=== PATIENT | male | born 1950 | race Hispanic/Latino ===

== ENCOUNTER 2020-05-28 00:07 | Inpatient (IN) | payer OTHER, SELFPAY ==
[2020-05-28 00:46] LABS: #Lymphocytes 0.5 thou/uL (1.20-3.40); #Monocytes 0.4 thou/uL (0.11-0.59); #Neutrophils 8.8 thou/uL (1.40-6.50); %Basophils 0.4 % (0.0-1.0); %Eosinophils 0.4 % (0.0-10.0); %Lymphocytes 5.4 % (21.0-51.0); %Monocytes 4.3 % (0.0-10.0); %Neutrophils 89.6 % (42.0-75.0); Hemoglobin 9.4 g/dL (14.0-18.0); Mean Corpuscular HGB CONC 32.7 g/dL (32.0-36.0); Mean Corpuscular Hemoglobin 32.3 pg (27.0-31.0); Mean Corpuscular Volume 98.8 fL (78.0-98.0); Mean Platelet Volume 7.8 fL (7.4-10.4); Platelet Count 196 thou/uL (130-400); RBC Distribution Width 12.3 % (11.5-14.5); Red Blood Cell (RBC) Count 2.91 mill/uL (4.70-6.10); White Blood Cell (WBC) Count 9.8 thou/uL (4.8-10.8)
[2020-05-28] MEDS ORDERED: Pantoprazole 80 MG in Sodium Chloride 0.9% 100 ML IVP SCH (01:00)
[2020-05-28] MEDS ORDERED: Octreotide Acetate 1,250 MCG in Sodium Chloride 0.9% 250 ML 250 ML IVPB SCH ×2 (01:00→01:15)
[2020-05-28] MEDS ORDERED: cefTRIAXone\\ROCEPHIN 2 GM VIAL ONE (01:07)
[2020-05-28] MEDS ORDERED: Octreotide Acetate 50 MCG/ML AMP ONE (01:07)
--- NOTE | 2020-05-28 01:19 | PDOC.EVN ---
Event Note - Event Note Event Note: [id number] HP
--- NOTE | 2020-05-28 01:48 | HP ---
CHIEF COMPLAINT: Vomiting blood. HISTORY OF PRESENT ILLNESS: Mr. Young is a 69-year-old male, who is being transferred from [place] for evaluation of upper GI bleeding. The patient had two episodes of bloody emesis today while at home, prompting him to go to the emergency room. The patient reports nausea, which has resolved. Denies pain. While at the emergency room in [place], the patient had a syncopal episode when ambulating to the bathroom with a brief loss of consciousness. In the emergency room, the patient received 3 L of fluids and 1 unit of packed RBCs. Hemoglobin was 10. Repeat hemoglobin is 9.4, after blood transfusion. The patient is persistently tachycardic. ED consulted with GI, who advised to admit the patient for possible endoscopy. The patient was started on IV proton pump inhibitor drip and IV octreotide. No fever. No chills. The patient is being admitted to the hospital for further management. PAST MEDICAL HISTORY: 1. Alcohol abuse. 2. Adenocarcinoma of the colon. PAST SURGICAL HISTORY: Colon surgery. SOCIAL HISTORY: The patient drinks every day, more than 5 drinks per day. He smokes cigarettes, one pack per week. FAMILY HISTORY: Reviewed and noncontributory. HOME MEDICATIONS: Please see home medication reconciliation form for updated medications. ALLERGIES: NO KNOWN ALLERGIES. REVIEW OF SYSTEMS: Review of 14 systems negative except what is mentioned in the history of present illness. PHYSICAL EXAMINATION: GENERAL: The patient is awake, alert, does not appear to be in acute distress. VITAL SIGNS: Blood pressure is 142/83, pulse is 125, respiratory rate is 20, temperature is 98. HEAD AND NECK: Normocephalic, atraumatic. Neck is supple. CHEST: Fair bilateral air entry. HEART: S1, S2, regular. ABDOMEN: Distended, nontender. Bowel sounds hypoactive. NEUROLOGIC: Awake, alert, and oriented x3. No focal deficits. PSYCH: Unable to assess. EXTREMITIES: No clubbing or cyanosis. LABORATORY DATA: Hemoglobin 10.3; after 1 unit of packed RBCs, went down to 9.4; platelet is 196, WBC count is 9.8. INR is 1.1. Electrolytes; BUN is 27, creatinine 0.6, AST is 70, ALT is 102. ASSESSMENT: 1. Acute gastrointestinal bleeding, upper. 2. Syncope, probably secondary to hypovolemia secondary to gastrointestinal bleeding. 3. Tachycardia. 4. Alcohol abuse. 5. History of colon cancer. 6. Cigarette smoker. PLAN: 1. Admit to IMCU. 2. Telemetry monitoring. 3. IV proton pump inhibitor drip. 4. IV octreotide. 5. Prophylactic IV antibiotics. 6. GI consulted for evaluation of further management. 7. Monitor hemoglobin and hematocrit. 8. Counseling while in the hospital for alcohol and smoking cessation. 9. DVT prophylaxis, appropriate. 10. Expected length of stay, 2 midnights or more. Job ID: [id number]
[2020-05-28 03:03] VITALS: BMI 24.3
[2020-05-28] MEDS: cefTRIAXone\\ROCEPHIN 1 GM in Sodium Chloride 0.9% 100 ML IVPB SCH (03:14)
[2020-05-28] MEDS: Sodium Chloride 0.9% 1,000 ML IV SCH ×3 (03:15→20:09)
[2020-05-28 03:25] LABS: #Lymphocytes 0.8 thou/uL (1.20-3.40); #Monocytes 0.5 thou/uL (0.11-0.59); #Neutrophils 9.1 thou/uL (1.40-6.50); %Basophils 0.1 % (0.0-1.0); %Eosinophils 0.3 % (0.0-10.0); %Lymphocytes 7.9 % (21.0-51.0); %Monocytes 5.1 % (0.0-10.0); %Neutrophils 86.6 % (42.0-75.0); Hemoglobin 10.8 g/dL (14.0-18.0); Mean Corpuscular HGB CONC 33.1 g/dL (32.0-36.0); Mean Corpuscular Hemoglobin 32.2 pg (27.0-31.0); Mean Corpuscular Volume 97.3 fL (78.0-98.0); Mean Platelet Volume 7.9 fL (7.4-10.4); Platelet Count 186 thou/uL (130-400); RBC Distribution Width 12.9 % (11.5-14.5); Red Blood Cell (RBC) Count 3.34 mill/uL (4.70-6.10); White Blood Cell (WBC) Count 10.5 thou/uL (4.8-10.8)
[2020-05-28 03:51] LABS: ALT (SGPT) 75 U/L (8-55); AST (SGOT) 47 U/L (5-34); Albumin 3.1 g/dL (3.4-4.8); Alkaline Phosphatase 81 U/L (40-110); Anion Gap 16 mmol/L (10-20); BUN (Urea Nitrogen) 26 mg/dL (8.4-25.7); Bilirubin, Total 0.3 mg/dL (0.2-1.2); Calc. Creatinine Clearance 118 mL/min (70-130); Calcium 7.1 mg/dL (7.8-10.44); Carbon Dioxide 17 mmol/L (23-31); Chloride 113 mmol/L (98-107); Estimated GFR-MDRD Greater than 90; Globulin 2.3 g/dL (2.4-3.5); Glucose 177 mg/dL (80-115); Protein, Total 5.4 g/dL (5.8-8.1); Sodium 142 mmol/L (136-145)
[2020-05-28] MEDS ORDERED: PHENYLEPHRINE-NS 100 MCG/ML 10 ML SYRINGE ONE (09:41)
[2020-05-28] MEDS ORDERED: Dexamethasone 20 MG/5 ML VIAL ONE (09:41)
[2020-05-28] MEDS ORDERED: PROPOFOL 200 MG/20 ML VIAL ONE (09:41)
[2020-05-28] MEDS ORDERED: Succinylcholine Chloride 20 MG/ML 10 ml SYRINGE FS ONE (09:41)
[2020-05-28] MEDS ORDERED: Ondansetron PF 4 MG/2 ML Vial ONE (09:41)
[2020-05-28] MEDS: Multivitamins, Adult 10 ML, Folic Acid 1 MG, Thiamine HCl 100 MG in Dextrose 5 %-0.45 %... IV SCH (10:40)
[2020-05-28 11:50] LABS: SARS-CoV-2 MS2 Positive; SARS-CoV-2 N Gene Negative; SARS-CoV-2 S Gene Negative; SARS-CoV-2 by NAA Not Detected (NotDetected); SARS-CoV-2 orf1ab Negative
--- NOTE | 2020-05-28 11:56 | CON ---
DATE OF CONSULTATION: 05/28/2020 HISTORY OF PRESENT ILLNESS: Mr. Young is a 69-year-old gentleman, who was admitted to the hospital for GI bleed. He underwent a CT of his abdomen in [place], which showed no obvious masses. He has had previous colon resection for colon carcinoma in 2016. It is unclear who he is being followed by. He speaks little to no [place]ian. 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 He presented with vomiting several times. He is in the ICU for observation. PAST MEDICAL HISTORY: Pertinent for no other major medical problems. No history of diabetes or hypertension. HABITS: Alcohol, 5 to 6 drinks a day. Smoker in the past, unclear when he quit smoking. SOCIAL HISTORY: Unemployed. FAMILY HISTORY: Unremarkable. HOME MEDICINES: Unknown. REVIEW OF SYSTEMS: Otherwise, unremarkable. PHYSICAL EXAMINATION: VITAL SIGNS: He is in no distress. Sats are 100% on room air, blood pressure 130/80, pulse rate 18. CHEST: No wheezing. No crackles. CARDIAC: Normal S1 and S2. No gallops. ABDOMEN: No masses. LABORATORY DATA: His platelet count is normal, white count 10,000, and H and H of 10 and 32. Lytes are normal. X-ray was normal. CT of abdomen was noted. IMPRESSION AND PLAN: 1. Upper GI bleed, gastritis versus varices. 2. Longstanding history of alcohol abuse. 3. Longstanding history of tobacco abuse. 4. Colon cancer, rectosigmoid, 2016, status post surgery. Banana bag initiated. He is on Protonix, octreotide. Await GI input. Consultation note, 70 minutes, 50% direct patient care. Job ID: [id number]
[2020-05-28 13:20] LABS: Hemoglobin 9.7 g/dL (14.0-18.0)
--- NOTE | 2020-05-28 13:50 | PDOC.HOSPP ---
- Subjective Encounter Date: 05/28/20 Subjective: Doing well. No complaints. Denies abdominal pain. Denies any additional vomiting. - Objective Vital Signs & Weight: Vital Signs (12 hours) Temp Pulse Ox 05/28/20 12:00 99.2 F 05/28/20 08:00 99.2 F 97 05/28/20 03:52 92 L 05/28/20 03:00 97.5 F L Weight Weight 151 lb 0.266 oz Most Recent Monitor Data Heart Rate from ECG 81 NIBP 147/91 NIBP BP-Mean 109 Respiration from ECG 15 SpO2 98 I&O: 05/27/20 05/28/20 05/29/20 06:59 06:59 06:59 Intake Total 325 Output Total 300 1650 Balance 25 -1650 Result Diagrams: 05/28/20 13:03 05/28/20 03:14 Hospitalist ROS - Medication Medications: Active Medications Generic Name Dose Route Start Last Admin Trade Name Freq PRN Reason Stop Dose Admin Sodium Chloride 1,000 mls @ 100 mls/hr 05/28/20 01:00 05/28/20 10:40 Normal Saline 0.9% IV Not Given .Q10H RICO Pantoprazole Sodium 80 mg/ 100 mls @ 10 mls/hr 05/28/20 01:00 05/28/20 08:51 Sodium Chloride IVP 100 mls INF RICO Administration Ceftriaxone Sodium 1 gm/ 100 mls @ 200 mls/hr 05/28/20 02:00 05/28/20 03:14 Sodium Chloride IVPB Not Given Q24HR RICO Multivitamins 10 ml/ Folic 1,011.2 mls @ 125 mls/hr 05/28/20 09:00 05/28/20 10:40 Acid 1 mg/ Thiamine HCl 100 mg IV 05/31/20 09:01 1,011.2 mls / Dextrose/Sodium Chloride Q24HR RICO Administration As Directed - Exam General Appearance: NAD, awake alert Heart: RRR, no murmur, no gallops, no rubs, normal peripheral pulses Respiratory: CTAB, no wheezes, no rales, no ronchi, normal chest expansion, no tachypnea, normal percussion Gastrointestinal: soft, non-tender, non-distended, normal bowel sounds, no palpable masses, no hepatomegaly, no splenomegaly, no bruit Extremities: no cyanosis, no clubbing, no edema Skin: normal turgor, no lesions, no rashes Neurological: cranial nerve grossly intact, normal sensation to touch, no weakness, no focal deficits, no new deficit Musculoskeletal: normal tone, normal strength, no muscle wasting Psychiatric: normal affect, normal behavior, A&O x 3 Hosp A/P (1) GI bleed Code(s): K92.2 - GASTROINTESTINAL HEMORRHAGE, UNSPECIFIED Status: Acute (2) Hematochezia Code(s): K92.1 - MELENA Status: Chronic (3) Alcohol abuse Code(s): F10.10 - ALCOHOL ABUSE, UNCOMPLICATED Status: Chronic (4) Tobacco abuse Code(s): Z72.0 - TOBACCO USE Status: Chronic (5) Syncope Code(s): R55 - SYNCOPE AND COLLAPSE Status: Acute (6) History of colon cancer Code(s): Z85.038 - PERSONAL HISTORY OF MALIGNANT NEOPLASM OF LARGE INTESTINE Status: Acute - Plan GI bleed: Patient had episodes of hematemesis but apparently that is now resolved. His hemoglobin remains relatively stable. He remains on PPI, octreotide. GI consult pending. He appears hemodynamically stable. Alcohol abuse: Patient is a daily drinker. He is getting a banana bag. He has no evidence of withdrawal at this time. Anemia: Mild and stable. Likely more related to chronic alcohol use than an acute blood loss.
--- NOTE | 2020-05-28 16:14 | CON ---
DATE OF CONSULTATION: 05/28/2020 CHIEF COMPLAINT: Vomited blood. HISTORY OF PRESENT ILLNESS: Mr. Young is a 69-year-old man, who vomited red blood at home yesterday and then he came to the emergency room and vomited red blood again. He has had no further overt bleeding since then. His last bowel movement was yesterday morning, which he reports was black. He has had no abdominal pain with this. No persistent nausea and he has had no vomiting today. His weight has been stable. He was diagnosed with colon cancer by colonoscopy with a [facility] back in 2015. He underwent rectosigmoid colon resection of a 10 cm x 6.5 cm mass. This was a T2 N0 M0 lesion. I do not know if he has had any followup endoscopy since then. He drinks 6 packs of beer per day. He smokes half a pack a day. PAST MEDICAL HISTORY: Alcohol abuse and colon cancer. PAST SURGICAL HISTORY: Colon resection. FAMILY HISTORY: His grandmother had cancer, he does not know what type. SOCIAL HISTORY: Smokes half a pack a day. Drinks 6 packs a day. No drugs. ALLERGIES: NO KNOWN DRUG ALLERGIES. MEDICATIONS PRIOR TO ADMISSION: Negative. CURRENT INPATIENT MEDICATIONS: Include: 1. Ceftriaxone. 2. Octreotide. 3. Pantoprazole. REVIEW OF SYSTEMS: Negative x10 systems reviewed except as stated in the history of present illness. PHYSICAL EXAMINATION: VITAL SIGNS: Temperature is 99.2, pulse 72, blood pressure 120/53. GENERAL: He is in no acute distress. Alert and oriented x3. HEENT: Eyes have no scleral icterus. Oropharynx is clear without lesions. No cervical or supraclavicular lymphadenopathy. LUNGS: Clear to auscultation bilaterally. HEART: Regular rate and rhythm without murmur. ABDOMEN: Soft, nontender, and nondistended. Bowel sounds are present. EXTREMITIES: No lower extremity edema. NEUROLOGIC: No asterixis on neurological exam. LABORATORY DATA: White blood cell count 10.5, hemoglobin 10.8, and platelets 186. He did receive 1 unit transfusion apparently last night and his hemoglobin improved from 9.4 to 10.8. This morning at 9 o'clock, his hemoglobin was 10, platelet count is 186. INR 1.1. Creatinine 0.59, bilirubin 0.3, AST 47, ALT 75, alkaline phosphatase 81, albumin 3.1. Lipase 20. CEA back in 2016 was 8.1. IMAGING STUDIES: He had a CT scan of the abdomen and pelvis yesterday on 05/27/2020, which showed fatty infiltration of the liver and fluid-filled stomach. IMPRESSION: 1. Upper gastrointestinal bleed, presenting with hematemesis. He has a significant history of alcohol abuse and elevated transaminases. He does not have obvious cirrhosis based on imaging. His INR is normal, his platelets are normal, and his bilirubin is normal. His albumin is a little low, but that is likely secondary to nutritional etiology, but still he needs to be covered as if he has cirrhosis until endoscopy can be performed. 2. History of colon cancer, status post resection in 2016. It is unclear to me if he has had followup since then regarding endoscopy or if he received any kind of chemotherapy. 3. Anemia of acute blood loss, status post 1 unit transfusion with hemoglobin now of 10 up from 9.4 after transfusion. RECOMMENDATIONS: 1. Octreotide, ceftriaxone, and pantoprazole. 2. EGD today. 3. We will need to clarify if he has had followup colonoscopy since his colon resection for colon cancer. If not, then he should get this done as an outpatient. 4. Check CEA level. Job ID: [id number]
--- NOTE | 2020-05-28 18:03 | OP ---
DATE OF PROCEDURE: 05/28/2020 PROCEDURE PERFORMED: Esophagogastroduodenoscopy with control of hemorrhage. PREOPERATIVE DIAGNOSIS: Upper gastrointestinal bleed and anemia of acute blood loss. DESCRIPTION OF PROCEDURE: Informed consent was obtained from the patient. He was sedated with general anesthesia. The bite block was placed and the endoscope was advanced easily to the second portion of the duodenum and retroflexion was performed in the stomach. The esophagus had an ulcer in the mid esophagus with its deepest portion at 31 cm with a large adherent clot. The rest of the esophagus was normal. No obvious varices. The stomach was normal including retroflexed views. The pylorus and first and second portions of the duodenum were normal. The area of the adherent clot was injected with epinephrine 1 mL per quadrant in 4 quadrants around the ulcer with epinephrine 1:10,000. The clot was then dislodged with the 10-[place] gold probe. There was active bleeding from the vessel underneath and this was cauterized with the 10-[place] gold probe with 20 ling max with good hemostasis confirmed. There was a significant cautery effect in the base of the ulcer. I closed the site with 3 hemoclips. Good hemostasis was confirmed. IMPRESSION: Esophageal ulcer with a large adherent clot at 31 cm, which bled actively when the clot was dislodged. This was injected with epinephrine 1:10,000 for a total of 4 mL and cauterized with a 10-[place]ian gold probe with good hemostasis. The cautery ulcer was closed with 3 hemoclips. RECOMMENDATIONS: 1. Continue proton pump inhibitor IV. 2. Clear liquid diet starting after a couple of hours and then advance to full liquids. He should remain on full liquids for a few days or at least pureed. 3. Discontinue octreotide. 4. Okay to discontinue ceftriaxone from a GI standpoint. However, I will not discontinue this now in case the primary service would like for him to be on this from a standpoint of his elevated white blood cell count on admission. Job ID: [id number]
[2020-05-28] MEDS: Pantoprazole 40 MG VIAL IVP SCH (20:09)
[2020-05-29] MEDS: cefTRIAXone\\ROCEPHIN 1 GM in Sodium Chloride 0.9% 100 ML IVPB SCH (01:00)
[2020-05-29 03:45] LABS: Hemoglobin 9.4 g/dL (14.0-18.0); Mean Corpuscular HGB CONC 33.5 g/dL (32.0-36.0); Mean Corpuscular Hemoglobin 32.2 pg (27.0-31.0); Mean Corpuscular Volume 95.9 fL (78.0-98.0); RBC Distribution Width 13.1 % (11.5-14.5); Red Blood Cell (RBC) Count 2.92 mill/uL (4.70-6.10); White Blood Cell (WBC) Count 10.4 thou/uL (4.8-10.8)
[2020-05-29 03:46] LABS: #Lymphocytes 0.9 thou/uL (1.20-3.40); #Monocytes 0.4 thou/uL (0.11-0.59); #Neutrophils 9.1 thou/uL (1.40-6.50); %Basophils 0.1 % (0.0-1.0); %Eosinophils 0.1 % (0.0-10.0); %Lymphocytes 8.9 % (21.0-51.0); %Monocytes 4.1 % (0.0-10.0); %Neutrophils 86.9 % (42.0-75.0); Mean Platelet Volume 8.3 fL (7.4-10.4); Platelet Count 177 thou/uL (130-400)
[2020-05-29 04:07] LABS: ALT (SGPT) 51 U/L (8-55); AST (SGOT) 25 U/L (5-34); Albumin 3.1 g/dL (3.4-4.8); Alkaline Phosphatase 74 U/L (40-110); Anion Gap 12 mmol/L (10-20); BUN (Urea Nitrogen) 13 mg/dL (8.4-25.7); Bilirubin, Total 0.3 mg/dL (0.2-1.2); Calc. Creatinine Clearance 112 mL/min (70-130); Calcium 7.8 mg/dL (7.8-10.44); Carbon Dioxide 26 mmol/L (23-31); Chloride 108 mmol/L (98-107); Estimated GFR-MDRD Greater than 90; Globulin 2.3 g/dL (2.4-3.5); Glucose 147 mg/dL (80-115); Potassium 3.5 mmol/L (3.5-5.1); Protein, Total 5.4 g/dL (5.8-8.1); Sodium 142 mmol/L (136-145)
[2020-05-29] MEDS: Sodium Chloride 0.9% 1,000 ML IV SCH ×2 (07:40→17:15)
[2020-05-29] MEDS: Pantoprazole 40 MG VIAL IVP SCH ×2 (09:40→19:41)
--- NOTE | 2020-05-29 10:00 | PRG ---
DATE OF SERVICE: 05/29/2020 SUBJECTIVE: Transferred out of the ICU. Yesterday, he underwent upper GI endoscopy, was found to have also on the esophagus larger clot. Epinephrine was instilled. It was cauterized. He is doing well postsurgery. OBJECTIVE: VITAL SIGNS: He is now 96% on room air, blood pressure 138/66, respirations 16, temperature 97. CHEST: No wheezing. No crackles. CARDIAC: Normal S1, S2. No gallops. ABDOMEN: Soft. LABORATORY DATA: H and H, 9 and 28, platelet count normal. ASSESSMENT: Upper gastrointestinal bleed, status post endoscopy. PLAN: Pulmonary/Critical Care will follow at a distance. Nothing additional to offer. Job ID: [id number]
[2020-05-29] MEDS: Multivitamins, Adult 10 ML, Folic Acid 1 MG, Thiamine HCl 100 MG in Dextrose 5 %-0.45 %... IV SCH (10:34)
--- NOTE | 2020-05-29 17:12 | PRG ---
DATE OF SERVICE: 05/29/2020 SUBJECTIVE: Mr. Hector Daugherty is feeling pretty well today. He denies any chest pain or abdominal pain. He has not had any recurrence of nausea or vomiting. There has been no report of overt bleeding. His hemoglobin is fairly stable at 9.4 this morning. He has been tolerating his liquid diet. OBJECTIVE: VITAL SIGNS: Temperature 97.4, pulse 66, blood pressure 138/66, 96% oxygen saturation on room air. GENERAL: No acute distress. HEART: Regular rate and rhythm. LUNGS: Clear to auscultation bilaterally. ABDOMEN: Bowel sounds present. Soft and nontender to palpation. EXTREMITIES: No peripheral edema. LABORATORY STUDIES: Hemoglobin 9.4, WBC 10.4, platelets 177. Sodium 142; potassium 3.5; BUN 13, down from 26; creatinine is 0.62; glucose 147. LFTs have normalized with total bilirubin 0.3, alkaline phosphatase 74, AST 25, ALT 51. CEA is 5.41, which is slightly elevated. COVID PCR is negative. ASSESSMENT AND PLAN: 1. Esophageal ulcer with hemorrhage, status post endoscopic therapy with epinephrine injection, bipolar cautery, and hemoclip placement by Dr. Mccurdy yesterday. 2. Acute blood loss anemia, appears to have stabilized. I discussed with the patient that this esophageal ulcer ought to heal without any rebleeding as long as treated appropriately. Continue the PPI twice daily IV while here, transition to p.o. dosing on discharge and continue for at least the next 2 months. Because of the potential for dislodging these hemoclips that were placed by Dr. Mccurdy, I would agree with his recommendation to stay on a liquid or pureed diet for the next few days. We will keep him on a full liquid diet today, but could advance to a pureed diet tomorrow afternoon if he is still doing well. 3. Elevated CEA. 4. History of colon cancer. This was resected a couple of years ago. The patient is going to need repeat colonoscopy on an outpatient basis. 5. GI will continue to follow along. Please call back anytime with questions or concerns. Job ID: [id number]
--- NOTE | 2020-05-29 23:02 | PDOC.HOSPP ---
- Subjective Encounter Date: 05/29/20 Subjective: Doing very well. No pain. NO vomiting. NO complaints. Patient clarified that he only drinks a couple of beers per day. - Objective Vital Signs & Weight: Vital Signs (12 hours) Temp Pulse Resp BP Pulse Ox 05/29/20 19:39 97.4 F L 67 16 111/55 L 98 Weight Admit Weight 151 lb 0.266 oz Weight 151 lb Most Recent Monitor Data Heart Rate from ECG 81 NIBP 147/91 NIBP BP-Mean 109 Respiration from ECG 15 SpO2 98 I&O: 05/28/20 05/29/20 05/30/20 06:59 06:59 06:59 Intake Total 325 2580 Output Total 300 5480 2750 Balance 12 -4318 -1728 Result Diagrams: 05/29/20 03:20 05/29/20 03:20 Hospitalist ROS - Medication Medications: Active Medications Generic Name Dose Route Start Last Admin Trade Name Freq PRN Reason Stop Dose Admin Sodium Chloride 1,000 mls @ 100 mls/hr 05/28/20 01:00 05/29/20 17:15 Normal Saline 0.9% IV 1,000 mls .Q10H RICO Administration Multivitamins 10 ml/ Folic 1,011.2 mls @ 125 mls/hr 05/28/20 09:00 05/29/20 10:34 Acid 1 mg/ Thiamine HCl 100 mg IV 05/31/20 09:01 1,011.2 mls / Dextrose/Sodium Chloride Q24HR RICO Administration As Directed Pantoprazole Sodium 40 mg 05/28/20 21:00 05/29/20 19:41 Protonix IVP 40 mg Q12HR RICO Administration - Exam General Appearance: NAD, awake alert Heart: RRR, no murmur, no gallops, no rubs, normal peripheral pulses Respiratory: CTAB, no wheezes, no rales, no ronchi, normal chest expansion, no tachypnea, normal percussion Gastrointestinal: soft, non-tender, non-distended, normal bowel sounds, no palpable masses, no hepatomegaly, no splenomegaly, no bruit Extremities: no cyanosis, no clubbing, no edema Skin: normal turgor, no lesions, no rashes Neurological: cranial nerve grossly intact, normal sensation to touch, no weakness, no focal deficits, no new deficit Musculoskeletal: normal tone, normal strength, no muscle wasting Psychiatric: normal affect, normal behavior, A&O x 3 Hosp A/P (1) GI bleed Code(s): K92.2 - GASTROINTESTINAL HEMORRHAGE, UNSPECIFIED Status: Acute (2) Hematochezia Code(s): K92.1 - MELENA Status: Chronic (3) Alcohol abuse Code(s): F10.10 - ALCOHOL ABUSE, UNCOMPLICATED Status: Ruled-out (4) Tobacco abuse Code(s): Z72.0 - TOBACCO USE Status: Chronic (5) Syncope Code(s): R55 - SYNCOPE AND COLLAPSE Status: Acute (6) History of colon cancer Code(s): Z85.038 - PERSONAL HISTORY OF MALIGNANT NEOPLASM OF LARGE INTESTINE Status: Acute (7) Esophageal ulcer with bleeding Status: Acute - Plan GI bleed: Large esophageal ulcer. He works late, eats, drinks a couple of beers and goes to bed. Likely precipitates a lot of reflux. He was educated to avoid that. Continue with full liquids today. Pureed tomorrow. Alcohol abuse: Patient clarified that he doesn't actually drink more that two beers per day. Will continue the banana bag, but don't suspect WD is a concern. Anemia: Mild and stable. Likely more related to chronic alcohol use than an acute blood loss.
[2020-05-30] MEDS: Sodium Chloride 0.9% 1,000 ML IV SCH ×3 (02:23→20:24)
[2020-05-30 09:21] LABS: #Basophils 0.1 thou/uL (0.0-0.2); #Eosinphils 0.1 thou/uL (0.0-0.7); #Lymphocytes 1.8 thou/uL (1.20-3.40); #Monocytes 0.7 thou/uL (0.11-0.59); #Neutrophils 4.8 thou/uL (1.40-6.50); %Basophils 0.9 % (0.0-1.0); %Eosinophils 1.7 % (0.0-10.0); %Lymphocytes 23.9 % (21.0-51.0); %Monocytes 9.8 % (0.0-10.0); %Neutrophils 63.7 % (42.0-75.0); Hemoglobin 9.8 g/dL (14.0-18.0); Mean Corpuscular HGB CONC 33.1 g/dL (32.0-36.0); Mean Corpuscular Hemoglobin 32.1 pg (27.0-31.0); Mean Corpuscular Volume 96.9 fL (78.0-98.0); Mean Platelet Volume 8.1 fL (7.4-10.4); Platelet Count 181 thou/uL (130-400); Red Blood Cell (RBC) Count 3.07 mill/uL (4.70-6.10); White Blood Cell (WBC) Count 7.5 thou/uL (4.8-10.8)
[2020-05-30] MEDS: Pantoprazole 40 MG VIAL IVP SCH ×2 (10:16→20:23)
[2020-05-30] MEDS: Multivitamins, Adult 10 ML, Folic Acid 1 MG, Thiamine HCl 100 MG in Dextrose 5 %-0.45 %... IV SCH (10:18)
--- NOTE | 2020-05-30 11:48 | PDOC.HOSPP ---
- Subjective Encounter Date: 05/30/20 Subjective: Patient feels very well today. He has no complaints. Denies any abdominal pain or nausea. He has been tolerating full liquid diet and advance to pured this morning by GI. - Objective Vital Signs & Weight: Vital Signs (12 hours) Temp Pulse Resp BP Pulse Ox 05/30/20 07:31 97.5 F L 68 18 139/65 99 Weight Admit Weight 151 lb 0.266 oz Weight 151 lb Most Recent Monitor Data Heart Rate from ECG 81 NIBP 147/91 NIBP BP-Mean 109 Respiration from ECG 15 SpO2 98 Selected Entries 05/29/20 19:39 Temperature 97.4 F L Blood Pressure 111/55 L [Semi-Fowlers] I&O: 05/29/20 05/30/20 05/31/20 06:59 06:59 06:59 Intake Total 2580 1400 Output Total 5480 4150 Balance -2900 -8210 Result Diagrams: 05/30/20 09:10 05/29/20 03:20 Additional Labs: Laboratory Tests 05/29/20 03:20 Hgb 9.4 L Hospitalist ROS - Medication Medications: Active Medications Generic Name Dose Route Start Last Admin Trade Name Freq PRN Reason Stop Dose Admin Sodium Chloride 1,000 mls @ 100 mls/hr 05/28/20 01:00 05/30/20 02:23 Normal Saline 0.9% IV 1,000 mls .Q10H RICO Administration Multivitamins 10 ml/ Folic 1,011.2 mls @ 125 mls/hr 05/28/20 09:00 05/30/20 10:18 Acid 1 mg/ Thiamine HCl 100 mg IV 05/31/20 09:01 1,011.2 mls / Dextrose/Sodium Chloride Q24HR RICO Administration As Directed Pantoprazole Sodium 40 mg 05/28/20 21:00 05/30/20 10:16 Protonix IVP 40 mg Q12HR RICO Administration - Exam General Appearance: NAD, awake alert Heart: RRR, no murmur, no gallops, no rubs, normal peripheral pulses Respiratory: CTAB, no wheezes, no rales, no ronchi, normal chest expansion, no tachypnea, normal percussion Gastrointestinal: soft, non-tender, non-distended, normal bowel sounds, no palpable masses, no hepatomegaly, no splenomegaly, no bruit Extremities: no cyanosis, no clubbing, no edema Skin: normal turgor, no lesions, no rashes Neurological: cranial nerve grossly intact, normal sensation to touch, no weakness, no focal deficits, no new deficit Musculoskeletal: normal tone, normal strength, no muscle wasting Psychiatric: normal affect, normal behavior, A&O x 3 Hosp A/P (1) GI bleed Code(s): K92.2 - GASTROINTESTINAL HEMORRHAGE, UNSPECIFIED Status: Acute (2) Hematochezia Code(s): K92.1 - MELENA Status: Chronic (3) Tobacco abuse Code(s): Z72.0 - TOBACCO USE Status: Chronic (4) Syncope Code(s): R55 - SYNCOPE AND COLLAPSE Status: Acute (5) History of colon cancer Code(s): Z85.038 - PERSONAL HISTORY OF MALIGNANT NEOPLASM OF LARGE INTESTINE Status: Acute (6) Esophageal ulcer with bleeding Status: Acute - Plan GI bleed: Large esophageal ulcer. This was cauterized and subsequently clipped. Hemoglobin has remained stable. Advance from full liquids to pured foods today in order to avoid disrupting the clips that were placed. Recheck his hemoglobin in the morning. If stable will discharge to home. Anemia: Mild and stable.
[2020-05-31 03:44] LABS: #Basophils 0.1 thou/uL (0.0-0.2); #Eosinphils 0.3 thou/uL (0.0-0.7); #Lymphocytes 1.5 thou/uL (1.20-3.40); #Monocytes 0.8 thou/uL (0.11-0.59); #Neutrophils 4.4 thou/uL (1.40-6.50); %Basophils 0.9 % (0.0-1.0); %Eosinophils 4.2 % (0.0-10.0); %Lymphocytes 21.6 % (21.0-51.0); %Monocytes 11.3 % (0.0-10.0); %Neutrophils 62.1 % (42.0-75.0); Hemoglobin 9.7 g/dL (14.0-18.0); Mean Corpuscular Hemoglobin 31.9 pg (27.0-31.0); Mean Corpuscular Volume 96.7 fL (78.0-98.0); Mean Platelet Volume 8.2 fL (7.4-10.4); Platelet Count 192 thou/uL (130-400); RBC Distribution Width 12.9 % (11.5-14.5); Red Blood Cell (RBC) Count 3.04 mill/uL (4.70-6.10); White Blood Cell (WBC) Count 7.1 thou/uL (4.8-10.8)
--- NOTE | 2020-05-31 05:54 | PRG ---
DATE OF SERVICE: 05/30/2020 SUBJECTIVE: Mr. Young is a 69-year-old, who had upper GI bleed when he came in on the 8th. He had this clipped and burned. He is tolerating a pureed diet. He has had scant bowel movements with no blood. No overt nausea, vomiting, or hematemesis. Denies any chest pain. MEDICATIONS: Multivitamin, Protonix 40 IV q.12, and normal saline at 100 an hour. PHYSICAL EXAMINATION: GENERAL: He is resting comfortably in bed. VITAL SIGNS: Temperature 97, pulse 68, and blood pressure 139/65. ABDOMEN: Soft and nontender. CHEST: Nontender. LUNGS: Clear. LABORATORY DATA: White count 7.5, hemoglobin 9.8, and platelet count 181,000. INR 1.1 on the 7th. Sodium 142, potassium 3.5, BUN and creatinine 13 and 0.6, down from 27 and 0.67, albumin 3.1, and protein 5.4. CEA 5.41 and it was 8.1 with his cancer in 2016. CT scan on admission shows gastric distention, normal appendix, and diffuse fatty liver. ASSESSMENT: 1. Upper gastrointestinal bleed from esophageal ulcer. It is unclear if this is related to retching from alcohol abuse or pill esophagitis or just bad reflux in the mid esophagus. The biopsies were not obtained. 2. Hemorrhaging, resolved. 3. History of colon cancer, T2 N1 in 2016, sigmoid resection. It is unclear if he has had polyps since then. RECOMMENDATIONS: I agree with plan to advance diet to soft diet tomorrow. Hopefully, he will be able to go home tomorrow on p.o. Protonix. He needs a followup EGD in one month with Dr. Mccurdy. He needs to follow up in our office for, but he also needs a followup colonoscopy, which we can do at the same time. Job ID: [id number]
[2020-05-31 08:04] VITALS: BP 110/53; TEMP 98.2
[2020-05-31] MEDS ORDERED: Pantoprazole 40 MG VIAL IVP SCH (09:15)
[2020-05-31] MEDS: Multivitamins, Adult 10 ML, Folic Acid 1 MG, Thiamine HCl 100 MG in Dextrose 5 %-0.45 %... IV SCH (09:37)
[2020-05-31] MEDS: Sodium Chloride 0.9% 1,000 ML IV SCH (09:38)
[2020-05-31] MEDS: Pantoprazole 40 MG VIAL IVP SCH (09:45)
--- NOTE | 2020-06-01 02:55 | DIS ---
DATE OF ADMISSION: 05/28/2020 DATE OF DISCHARGE: 05/31/2020 DISCHARGE DIAGNOSES: 1. Upper gastrointestinal bleed. 2. Hematochezia. 3. Esophageal ulcer. 4. History of colon cancer. 5. Syncope. 6. Elevated CEA. HISTORY OF PRESENT ILLNESS: This patient is a 69-year-old male, who presented to the Emergency Department. The patient presented with signs of GI bleeding and a syncopal episode. His labs were notable for hemoglobin of 9.4. Other labs were generally unremarkable, had stable vital signs. HOSPITAL COURSE: The patient was admitted to the hospital. He had serial hemoglobins, which remained normal. He remained stable. He was placed on a IV PPI, was seen in consultation by GI. Subsequently, the patient underwent EGD, which revealed a large distal esophageal ulcer requiring cautery and some clips over deep ulcer base. Subsequently, he had stable hemoglobin. He was placed on liquid diet, advanced to a full liquid diet and ultimately to a soft mechanical diet. He showed no signs of any vomiting or abdominal pain or further GI bleeding and was felt to be stable for discharge to home. During the hospitalization, the patient did have a repeat CEA obtained given that he had a history of colon cancer and this was elevated at 5.41 or if the only other one we have in the computer system was from October of 2015, at which time it was 8.1. PHYSICAL EXAMINATION: VITAL SIGNS: On the day of discharge; temperature is 98.2, pulse 69, respirations 16, O2 saturation 98% on room air, and BP was 110/53. GENERAL APPEARANCE: The patient is awake, alert, very pleasant and cooperative. HEART: Regular. No murmurs. LUNGS: Clear bilaterally. ABDOMEN: Soft, nontender, and nondistended. Positive bowel sounds. EXTREMITIES: No edema. DISPOSITION: The patient is discharged to home. ACTIVITY: As tolerated. DIET: He will be on a low acid diet. Avoid alcohol, caffeine, and tobacco products. He should be on soft foods for several more days and he should avoid eating 3 hours prior to going to bed. MEDICATIONS: Pantoprazole 40 mg p.o. daily. FOLLOWUP: The patient is to follow up with Dr. Ramo Mccurdy, in the [facility] for consideration of repeat EGD and for colonoscopy. The patient can return to the hospital at anytime he has the need to do so prior to that time. TIME SPENT: Total time in discharge activities greater than 30 minutes. Job ID: [id number]
== END 2020-05-31 17:14 | disposition home or self-care (01) | DRG 381 ==
LOC: ERS 00:07 → CCU 01:13 → ONC 15:23 → UNDODISIN 05-29 18:06
PROVIDERS: ADMIT Internal Medicine; ATTEND Internal Medicine
PROC: 0W3P8ZZ Control Bleeding in Gastrointestinal Tract, Via Natural or Artificial Opening Endoscopic (ICD-10-PCS; principal; 2020-05-28)
DX: K22.11 Ulcer of esophagus with bleeding (principal); D62 Acute posthemorrhagic anemia; R18.8 Other ascites; R00.0 Tachycardia, unspecified; F17.210 Nicotine dependence, cigarettes, uncomplicated; R97.0 Elevated carcinoembryonic antigen [CEA]; F10.10 Alcohol abuse, uncomplicated; Z85.038 Personal history of other malignant neoplasm of large intestine; Z90.49 Acquired absence of other specified parts of digestive tract; Z71.6 Tobacco abuse counseling; Z71.41 Alcohol abuse counseling and surveillance of alcoholic
CPT/HCPCS: 36415; 36416; 80053; 82378; 85025; 86850; 86900; 86901; 87635; 96365; 96368; C9113; J0696; J1100; J2354; J2405; J2704; J3411; J3490; J7042; J7050; U0003

== ENCOUNTER 2024-02-23 11:40 | Emergency (ER) | payer OTHER, SELFPAY ==
[~2024-02-23 11:40] MED LIST: Iopamidol-370 76% 500 ML MDV (1 ML CHARGE) ONE
[2024-02-23] MEDS ORDERED: Morphine 4 MG/ML VIAL ONE (12:17)
[2024-02-23] MEDS ORDERED: Ondansetron PF 4 MG/2 ML Vial ONE (12:18)
[2024-02-23 12:43] LABS: #Basophils 0.09 10x3/uL (0.0-0.2); %Basophils 0.7 % (0.0-1.0); %Eosinophils 2.4 % (0.0-10.0); %Lymphocytes 18.3 % (21.0-51.0); %Monocytes 14.9 % (0.0-10.0); %Neutrophils 63.4 % (42.0-75.0); Hematocrit 38.2 % (42.0-52.0); Mean Corpuscular Hemoglobin 33.2 pg (27.0-31.0); Mean Corpuscular Volume 97.7 fL (78.0-98.0); Mean Platelet Volume 10.2 fL (7.4-10.4); Platelet Count 218 10x3/uL (130-400); RBC Distribution Width 16.6 % (11.5-14.5); Red Blood Cell (RBC) Count 3.91 mill/uL (4.70-6.10)
[2024-02-23 12:59] LABS: ALT (SGPT) 51 U/L (8-55); AST (SGOT) 145 U/L (5-34); Albumin 2.4 g/dL (3.4-4.8); Alkaline Phosphatase 248 U/L (40-110); Anion Gap 13 mmol/L (10-20); BUN (Urea Nitrogen) 6 mg/dL (8.4-25.7); Bilirubin, Total 2.3 mg/dL (0.2-1.2); Calc. Creatinine Clearance 0 mL/min (70-130); Calcium 8.4 mg/dL (7.8-10.44); Carbon Dioxide 23 mmol/L (23-31); Chloride 106 mmol/L (98-107); Estimated GFR 102; Globulin 5.3 g/dL (2.4-3.5); Glucose 90 mg/dL (83-110); Lipase 28 U/L (8-78); Magnesium 1.9 mg/dL (1.6-2.6); Potassium 3.3 mmol/L (3.5-5.1); Protein, Total 7.7 g/dL (5.8-8.1); Sodium 139 mmol/L (136-145)
[2024-02-23 13:16] LABS: Bacteria/HPF None Seen HPF (None Seen); Bilirubin Negative (Negative); Blood, Urine Negative (Negative); CAUTI Indications for Culture Pelvic or flank pain; Clarity Clear (Clear); Glucose, Urine (Dipstick) Normal (Negative); Ketone, Urine Negative (Negative); Leukocyte Negative Leu/uL (Negative); Nitrite Negative (Negative); Protein, Urine (Dipstick) 10 mg/dL (Neg-Trace); RBC/HPF 0-3 HPF (0-3); Specific Gravity, Urine 1.018 (1.002-1.036); Squamous Epithelial None Seen HPF (0-3); Urobilinogen 3 mg/dL (Less than 2); WBC/HPF 0-3 HPF (0-3); pH, Urine 6.5 (5.0-9.0)
[2024-02-23 13:19] LABS: Urine Culture Reflex No No
[2024-02-23] MEDS ORDERED: Potassium Bicarbonate/Cit Ac 20 MEQ TAB ONE (13:44)
== END 2024-02-23 15:51 | disposition home or self-care (01) ==
LOC: ERS 11:40
DX: K70.30 Alcoholic cirrhosis of liver without ascites (principal); R10.84 Generalized abdominal pain; F17.210 Nicotine dependence, cigarettes, uncomplicated
CPT/HCPCS: 74177; 80053; 81001; 83690; 83735; 85025; 93005; 96374; 96375; J2270; J2405; Q9967

== ENCOUNTER 2024-06-11 21:36 | Inpatient (IN) | payer MEDICAID, OTHER, SELFPAY ==
[2024-06-11 22:28] LABS: Actual Bicarbonate (HCO3v) 22.6 mEq/L (22-28); Base Excess 0.8 mEq/L (-2.0 to +3.0); Calcium, Ionized (venous) 1.08 mmol/L (1.16-1.32); Chloride (VBG) 93 mmol/L (98-106); Hematocrit-VBG 31 % (42.0-52.0); Hemoglobin (Hb) 10.7 g/dL (12.6-17.4); Potassium (VBG) 4.35 mmol/L (3.70-5.30); Sodium 126 mmol/L (133-146); pH (venous) 7.539 (7.32-7.43)
[2024-06-11 22:30] LABS: #Basophils Less than 0.03 10x3/uL (0.0-0.2); %Basophils 0.1 % (0.0-1.0); %Eosinophils 0.3 % (0.0-10.0); %Lymphocytes 4.6 % (21.0-51.0); %Monocytes 16.3 % (0.0-10.0); %Neutrophils 78.2 % (42.0-75.0); Hematocrit 26.1 % (42.0-52.0); Hemoglobin 9.6 g/dL (14.0-18.0); Mean Corpuscular HGB CONC 36.8 g/dL (32.0-36.0); Mean Corpuscular Hemoglobin 32.5 pg (27.0-31.0); Mean Corpuscular Volume 88.5 fL (78.0-98.0); Mean Platelet Volume 9.1 fL (7.4-10.4); Platelet Count 178 10x3/uL (130-400); RBC Distribution Width 15.1 % (11.5-14.5); Red Blood Cell (RBC) Count 2.95 mill/uL (4.70-6.10)
[2024-06-11 22:49] LABS: ALT (SGPT) 28 U/L (8-55); AST (SGOT) 57 U/L (5-34); Alkaline Phosphatase 109 U/L (40-110); Anion Gap 13 mmol/L (10-20); BUN (Urea Nitrogen) 23 mg/dL (8.4-25.7); Bilirubin, Total 2.1 mg/dL (0.2-1.2); Calc. Creatinine Clearance 0 mL/min (70-130); Calcium 8.4 mg/dL (7.8-10.44); Carbon Dioxide 22 mmol/L (23-31); Chloride 95 mmol/L (98-107); Estimated GFR 74; Globulin 5.3 g/dL (2.4-3.5); Glucose 108 mg/dL (83-110); Lipase 35 U/L (8-78); Potassium 4.3 mmol/L (3.5-5.1); Protein, Total 7.3 g/dL (5.8-8.1); Sodium 126 mmol/L (136-145); Troponin I Less than 0.010 ng/mL (< 0.028)
[2024-06-11] MEDS ORDERED: Sodium Chloride 0.9% 100 ML ONE (23:07)
[2024-06-11] MEDS ORDERED: Cefepime 2 GM VIAL ONE (23:07)
[2024-06-11] MEDS ORDERED: Lactulose 20 GM (30 mL) UDCUP ONE ×2 (23:18→23:20)
[2024-06-11] MEDS: Vancomycin (BATCH) 2 GM in Premix 1 BAG IVPB SCH (23:40)
[2024-06-12] MEDS ORDERED: Ondansetron PF 4 MG/2 ML Vial IVP PRN (00:16)
[2024-06-12] MEDS ORDERED: Acetaminophen 650 MG Suppository PR PRN (00:16)
[2024-06-12] MEDS ORDERED: Ondansetron ODT 4 MG TAB PO PRN (00:16)
[2024-06-12 01:33] LABS: Lactic Acid 3.55 mmol/L (0.5-2.2)
[2024-06-12] MEDS: Albumin 25% 25 GM (100 mL) BOT IVPB SCH ×2 (02:18→06:06)
[2024-06-12 03:03] VITALS: BMI 57.2
[2024-06-12 05:28] LABS: #Basophils 0.03 10x3/uL (0.0-0.2); #Eosinphils Less than 0.03 10x3/uL (0.0-0.7); %Basophils 0.3 % (0.0-1.0); %Eosinophils 0.2 % (0.0-10.0); %Lymphocytes 4.9 % (21.0-51.0); %Monocytes 15.7 % (0.0-10.0); %Neutrophils 78.5 % (42.0-75.0); Hemoglobin 10.5 g/dL (14.0-18.0); Mean Corpuscular Hemoglobin 31.6 pg (27.0-31.0); Mean Corpuscular Volume 90.4 fL (78.0-98.0); Mean Platelet Volume 8.8 fL (7.4-10.4); Platelet Count 154 10x3/uL (130-400); RBC Distribution Width 15.4 % (11.5-14.5); Red Blood Cell (RBC) Count 3.32 mill/uL (4.70-6.10)
[2024-06-12] MEDS ORDERED: Albumin 25% 100 ML ONE ×3 (05:49→17:32)
[2024-06-12 05:50] LABS: Vancomycin, Random 37.5 ug/mL (See Comment)
[2024-06-12] MEDS ORDERED: Acetaminophen 325 MG TAB ONE ×2 (05:52→17:32)
[2024-06-12 05:54] LABS: ALT (SGPT) 26 U/L (8-55); AST (SGOT) 51 U/L (5-34); Albumin 1.7 g/dL (3.4-4.8); Alkaline Phosphatase 94 U/L (40-110); Anion Gap 13 mmol/L (10-20); BUN (Urea Nitrogen) 21 mg/dL (8.4-25.7); Calc. Creatinine Clearance 83 mL/min (70-130); Calcium 8.1 mg/dL (7.8-10.44); Carbon Dioxide 20 mmol/L (23-31); Chloride 100 mmol/L (98-107); Estimated GFR 89; Globulin 4.9 g/dL (2.4-3.5); Glucose 98 mg/dL (83-110); Potassium 4.3 mmol/L (3.5-5.1); Protein, Total 6.6 g/dL (5.8-8.1); Sodium 129 mmol/L (136-145)
[2024-06-12] MEDS: Acetaminophen 325 MG TAB PO SCH (06:05)
[2024-06-12] MEDS ORDERED: Furosemide 40 MG TAB PO SCH (07:30)
[2024-06-12] MEDS ORDERED: Spironolactone 100 MG TAB PO SCH (08:00)
[2024-06-12] MEDS ORDERED: Vancomycin (BATCH) 1.5 GM in Premix 1 BAG IVPB SCH (09:00)
[2024-06-12] MEDS ORDERED: Nadolol 40 MG TAB PO SCH (09:00)
[2024-06-12] MEDS ORDERED: Lactulose 20 GM (30 mL) UDCUP PO SCH (09:00)
[2024-06-12 09:28] LABS: INR-International Normal Ratio 2.1
[2024-06-12 09:29] LABS: PTT 40.9 sec (22.9-36.1)
[2024-06-12] MEDS ORDERED: Lactulose 20 GM (30 mL) UDCUP ONE ×2 (10:55→17:32)
[2024-06-12] MEDS ORDERED: Pantoprazole 40 MG VIAL ONE (10:55)
[2024-06-12] MEDS ORDERED: cefTRIAXone (ROCEPHIN) 1 GM VIAL ONE (10:55)
[2024-06-12] MEDS ORDERED: Sodium Chloride 0.9% 100 ML ONE (10:57)
[2024-06-12] MEDS: cefTRIAXone\\ROCEPHIN 1 GM in Sodium Chloride 0.9% 100 ML IVPB SCH (11:20)
[2024-06-12] MEDS: Lactulose 20 GM (30 mL) UDCUP PO SCH (11:20)
[2024-06-12] MEDS: Pantoprazole 40 MG VIAL IVP SCH (11:21)
[2024-06-13] MEDS: Vancomycin (BATCH) 1.25 GM in Premix 1 BAG IVPB SCH ×2 (00:51→19:44)
[2024-06-13 05:14] LABS: #Basophils Less than 0.03 10x3/uL (0.0-0.2); %Basophils 0.2 % (0.0-1.0); %Eosinophils 0.8 % (0.0-10.0); %Lymphocytes 6.1 % (21.0-51.0); %Monocytes 15.3 % (0.0-10.0); Hematocrit 28.2 % (42.0-52.0); Hemoglobin 9.6 g/dL (14.0-18.0); Mean Corpuscular Hemoglobin 31.3 pg (27.0-31.0); Mean Corpuscular Volume 91.9 fL (78.0-98.0); Platelet Count 137 10x3/uL (130-400); RBC Distribution Width 15.7 % (11.5-14.5); Red Blood Cell (RBC) Count 3.07 mill/uL (4.70-6.10)
[2024-06-13 05:35] LABS: ALT (SGPT) 20 U/L (8-55); AST (SGOT) 36 U/L (5-34); Albumin 3.1 g/dL (3.4-4.8); Alkaline Phosphatase 78 U/L (40-110); Anion Gap 12 mmol/L (10-20); BUN (Urea Nitrogen) 16 mg/dL (8.4-25.7); Bilirubin, Total 2.1 mg/dL (0.2-1.2); Calc. Creatinine Clearance 83 mL/min (70-130); Calcium 8.8 mg/dL (7.8-10.44); Carbon Dioxide 21 mmol/L (23-31); Chloride 102 mmol/L (98-107); Estimated GFR 89; Globulin 3.5 g/dL (2.4-3.5); Glucose 108 mg/dL (83-110); Magnesium 2.3 mg/dL (1.6-2.6); Potassium 3.4 mmol/L (3.5-5.1); Protein, Total 6.6 g/dL (5.8-8.1); Sodium 132 mmol/L (136-145)
[2024-06-13] MEDS: Pantoprazole DR 40 MG TAB PO SCH (09:54)
[2024-06-13] MEDS ORDERED: Lidocaine 1% PF 5 ML VIAL ONE (11:23)
[2024-06-13 14:53] LABS: RBC Count-Automated (BF) 8685 /cu.mm; WBC/Nucleated-Auto (BF) 512 /cu.mm
[2024-06-13 14:58] LABS: Fluid, Protein 3.1 g/dL (Not Available)
[2024-06-13 15:48] LABS: BF Color Pink; Body Fluid Source Ascites Body Fluid; Clarity Cloudy/Turbid (Clear); Tube # EDTA
[2024-06-13 15:52] LABS: BF Segmented Neutrophils 27 %; Cell Count Non Hematic 11 %; Lymphocytes 62 %
[2024-06-13] MEDS: cefTRIAXone\\ROCEPHIN 1 GM in Sodium Chloride 0.9% 100 ML IVPB SCH (19:42)
[2024-06-14 04:40] LABS: #Basophils Less than 0.03 10x3/uL (0.0-0.2); %Basophils 0.2 % (0.0-1.0); %Lymphocytes 5.9 % (21.0-51.0); %Monocytes 14.8 % (0.0-10.0); %Neutrophils 77.7 % (42.0-75.0); Hematocrit 30.3 % (42.0-52.0); Hemoglobin 10.4 g/dL (14.0-18.0); Mean Corpuscular HGB CONC 34.3 g/dL (32.0-36.0); Mean Corpuscular Hemoglobin 31.5 pg (27.0-31.0); Mean Corpuscular Volume 91.8 fL (78.0-98.0); Mean Platelet Volume 9.4 fL (7.4-10.4); Platelet Count 151 10x3/uL (130-400); RBC Distribution Width 15.7 % (11.5-14.5)
[2024-06-14 05:03] LABS: ALT (SGPT) 24 U/L (8-55); AST (SGOT) 35 U/L (5-34); Albumin 2.7 g/dL (3.4-4.8); Alkaline Phosphatase 91 U/L (40-110); Anion Gap 12 mmol/L (10-20); BUN (Urea Nitrogen) 12 mg/dL (8.4-25.7); Bilirubin, Total 1.7 mg/dL (0.2-1.2); Calc. Creatinine Clearance 89 mL/min (70-130); Calcium 8.9 mg/dL (7.8-10.44); Carbon Dioxide 20 mmol/L (23-31); Chloride 102 mmol/L (98-107); Estimated GFR 93; Glucose 119 mg/dL (83-110); Magnesium 2.3 mg/dL (1.6-2.6); Potassium 3.6 mmol/L (3.5-5.1); Protein, Total 6.7 g/dL (5.8-8.1); Sodium 130 mmol/L (136-145)
[2024-06-14] MEDS: Albumin 25% 25 GM (100 mL) BOT IVPB SCH (05:07)
[2024-06-14] MEDS: cefTRIAXone\\ROCEPHIN 2 GM in Sodium Chloride 0.9% 100 ML IVPB SCH (09:27)
[2024-06-14] MEDS: Spironolactone 100 MG TAB PO SCH (09:29)
[2024-06-14] MEDS: Saccharomyces boulardii 250 MG CAP PO SCH (09:29)
[2024-06-14] MEDS: Metoprolol Tartrate 25 MG TAB PO SCH (09:29)
[2024-06-14] MEDS: Furosemide 40 MG TAB PO SCH (09:29)
[2024-06-14] MEDS: Lactulose 20 GM (30 mL) UDCUP PO SCH (21:11)
[2024-06-14] MEDS: Rifaximin 200 MG TAB PO SCH (21:13)
[2024-06-15 04:34] LABS: #Basophils Less than 0.03 10x3/uL (0.0-0.2); %Basophils 0.2 % (0.0-1.0); %Eosinophils 1.6 % (0.0-10.0); %Lymphocytes 6.2 % (21.0-51.0); %Monocytes 13.1 % (0.0-10.0); %Neutrophils 78.6 % (42.0-75.0); Hematocrit 29.3 % (42.0-52.0); Hemoglobin 9.8 g/dL (14.0-18.0); Mean Corpuscular HGB CONC 33.4 g/dL (32.0-36.0); Mean Corpuscular Hemoglobin 31.9 pg (27.0-31.0); Mean Corpuscular Volume 95.4 fL (78.0-98.0); Mean Platelet Volume 9.1 fL (7.4-10.4); Platelet Count 126 10x3/uL (130-400); RBC Distribution Width 15.7 % (11.5-14.5); Red Blood Cell (RBC) Count 3.07 mill/uL (4.70-6.10)
[2024-06-15 04:52] LABS: ALT (SGPT) 17 U/L (8-55); AST (SGOT) 29 U/L (5-34); Albumin 3.6 g/dL (3.4-4.8); Alkaline Phosphatase 77 U/L (40-110); Anion Gap 14 mmol/L (10-20); BUN (Urea Nitrogen) 10 mg/dL (8.4-25.7); Bilirubin, Total 1.9 mg/dL (0.2-1.2); Calc. Creatinine Clearance 65 mL/min (70-130); Calcium 9.4 mg/dL (7.8-10.44); Carbon Dioxide 20 mmol/L (23-31); Chloride 103 mmol/L (98-107); Estimated GFR 92; Glucose 126 mg/dL (83-110); Magnesium 2.3 mg/dL (1.6-2.6); Potassium 3.4 mmol/L (3.5-5.1); Protein, Total 6.6 g/dL (5.8-8.1); Sodium 134 mmol/L (136-145)
[2024-06-15 05:01] LABS: Vancomycin, Random 23.2 ug/mL (See Comment)
[2024-06-15] MEDS ORDERED: Electrolyte Replacement Protocol FS SCH (07:00)
[2024-06-15] MEDS: Potassium Chloride 20 MEQ TAB PO SCH (08:55)
[2024-06-15 12:08] VITALS: TEMP 98.8
[2024-06-15 15:31] VITALS: BP 128/68
== END 2024-06-15 17:04 | disposition home or self-care (01) | DRG 432 ==
LOC: ERS 21:36 → ERHOLD 23:45 → 2NO 06-12 18:47
PROVIDERS: ADMIT Student in an Organized Health Care Education/Training Program; ATTEND Family Medicine
PROC: 0W9G3ZX Drainage of Peritoneal Cavity, Percutaneous Approach, Diagnostic (ICD-10-PCS; principal; 2024-06-13)
DX: K70.31 Alcoholic cirrhosis of liver with ascites (principal); A41.9 Sepsis, unspecified organism; J90 Pleural effusion, not elsewhere classified; E87.1 Hypo-osmolality and hyponatremia; L03.311 Cellulitis of abdominal wall; E88.09 Other disorders of plasma-protein metabolism, not elsewhere classified; K76.82 Hepatic encephalopathy; I10 Essential (primary) hypertension; F17.210 Nicotine dependence, cigarettes, uncomplicated; D64.9 Anemia, unspecified; Z85.038 Personal history of other malignant neoplasm of large intestine; Z79.899 Other long term (current) drug therapy
CPT/HCPCS: 36415; 49083; 70450; 71045; 74177; 80053; 80202; 82140; 82805; 83605; 83615; 83690; 83735; 84157; 84484; 85025; 85060; 85610; 85730; 86850; 86900; 86901; 87040; 87070; 87205; 88112; 88305; 89051; 93005; 93010; 96374; 96375; J0692; J0696; J2470; J3370; P9047; Q9967

== ENCOUNTER 2024-07-02 20:06 | Inpatient (IN) | payer MEDICAID ==
[2024-07-02 20:38] LABS: #Basophils 0.03 10x3/uL (0.0-0.2); %Basophils 0.3 % (0.0-1.0); %Eosinophils 0.4 % (0.0-10.0); %Lymphocytes 5.4 % (21.0-51.0); %Monocytes 16.4 % (0.0-10.0); %Neutrophils 76.7 % (42.0-75.0); Hemoglobin 9.4 g/dL (14.0-18.0); Mean Corpuscular HGB CONC 33.6 g/dL (32.0-36.0); Mean Corpuscular Hemoglobin 31.6 pg (27.0-31.0); Mean Corpuscular Volume 94.3 fL (78.0-98.0); Platelet Count 178 10x3/uL (130-400); RBC Distribution Width 17.4 % (11.5-14.5); Red Blood Cell (RBC) Count 2.97 mill/uL (4.70-6.10)
[2024-07-02 20:52] LABS: INR-International Normal Ratio 2.2; Prothrombin Time 24.8 sec (12.0-14.7)
[2024-07-02 20:53] LABS: PTT 50.6 sec (22.9-36.1)
[2024-07-02] MEDS ORDERED: Acetaminophen 500 MG TAB ONE (20:55)
[2024-07-02] MEDS ORDERED: Piperacillin/Tazobactam 4.5 GM VIAL ONE (20:55)
[2024-07-02 20:56] LABS: ALT (SGPT) 18 U/L (8-55); AST (SGOT) 32 U/L (5-34); Albumin 2.3 g/dL (3.4-4.8); Alkaline Phosphatase 109 U/L (40-110); Anion Gap 13 mmol/L (10-20); BUN (Urea Nitrogen) 20 mg/dL (8.4-25.7); Bilirubin, Total 2.6 mg/dL (0.2-1.2); Calc. Creatinine Clearance 0 mL/min (70-130); Calcium 9.4 mg/dL (7.8-10.44); Carbon Dioxide 30 mmol/L (23-31); Chloride 96 mmol/L (98-107); Estimated GFR 94; Glucose 111 mg/dL (83-110); Potassium 3.5 mmol/L (3.5-5.1); Protein, Total 7.3 g/dL (5.8-8.1); Sodium 135 mmol/L (136-145)
[2024-07-02] MEDS ORDERED: Sodium Chloride 0.9% 100 ML ONE (20:57)
[2024-07-02 20:59] LABS: Troponin I Less than 0.010 ng/mL (< 0.028)
[2024-07-02 23:20] LABS: Bacteria/HPF None Seen HPF (None Seen); Bilirubin Negative (Negative); Blood, Urine Negative (Negative); CAUTI Indications for Culture Alt mental st,lethar; Clarity Clear (Clear); Glucose, Urine (Dipstick) Normal (Negative); Ketone, Urine Negative (Negative); Leukocyte Negative Leu/uL (Negative); Nitrite Negative (Negative); Protein, Urine (Dipstick) Negative (Neg-Trace); RBC/HPF None Seen HPF (0-3); Specific Gravity, Urine 1.006 (1.002-1.036); Squamous Epithelial None Seen HPF (0-3); Urobilinogen Normal mg/dL (Less than 2); WBC/HPF 0-3 HPF (0-3); pH, Urine 7.5 (5.0-9.0)
[2024-07-02 23:24] LABS: Urine Culture Reflex No No
[2024-07-02] MEDS ORDERED: Electrolyte Replacement Protocol 1 EACH FS SCH (23:30)
[2024-07-02] MEDS ORDERED: Albumin 25% 100 ML ONE (23:42)
[2024-07-02] MEDS: Vancomycin (BATCH) 1.5 GM in Premix 1 BAG IVPB SCH (23:44)
[2024-07-03] MEDS: Furosemide 40 MG (4 mL) VIAL SLOW IVP SCH ×2 (00:04→09:13)
[2024-07-03] MEDS: Midodrine HCl 5 MG TAB PO SCH (00:06)
[2024-07-03 00:09] LABS: Lactic Acid 3.26 mmol/L (0.5-2.2)
[2024-07-03 00:16] LABS: Troponin I Less than 0.010 ng/mL (< 0.028)
[2024-07-03] MEDS: Albumin 25% 25 GM (100 mL) BOT IVPB SCH (00:31)
[2024-07-03] MEDS: Spironolactone 100 MG TAB PO SCH ×2 (00:34→09:30)
[2024-07-03] MEDS ORDERED: Potassium Bicarbonate/Cit Ac 20 MEQ TAB ONE (01:36)
[2024-07-03] MEDS: Potassium Bicarbonate/Cit Ac 20 MEQ TAB PO SCH (01:43)
[2024-07-03] MEDS ORDERED: Electrolyte Replacement Protocol 1 EACH FS SCH (03:00)
[2024-07-03] MEDS ORDERED: Piperacillin/Tazobactam 3.375 GM VIAL ONE ×2 (05:33→11:19)
[2024-07-03] MEDS ORDERED: Sodium Chloride 0.9% 100 ML ONE ×2 (05:33→05:36)
[2024-07-03] MEDS ORDERED: Doxycycline 100 MG VIAL ONE (05:33)
[2024-07-03] MEDS: Piperacillin/Tazobactam 3.375 GM in Sodium Chloride 0.9% 100 ML IVPB SCH (05:51)
[2024-07-03] MEDS: Doxycycline 100 MG in Sodium Chloride 0.9% 100 ML IVPB SCH (05:53)
[2024-07-03] MEDS ORDERED: Albumin 25% 100 ML ONE ×2 (06:55→11:20)
[2024-07-03 07:08] LABS: #Basophils 0.05 10x3/uL (0.0-0.2); %Basophils 0.4 % (0.0-1.0); %Eosinophils 0.8 % (0.0-10.0); %Lymphocytes 6.9 % (21.0-51.0); %Monocytes 17.4 % (0.0-10.0); %Neutrophils 73.7 % (42.0-75.0); Hemoglobin 10.1 g/dL (14.0-18.0); Mean Corpuscular HGB CONC 32.6 g/dL (32.0-36.0); Mean Corpuscular Hemoglobin 31.5 pg (27.0-31.0); Mean Corpuscular Volume 96.6 fL (78.0-98.0); Mean Platelet Volume 9.1 fL (7.4-10.4); Platelet Count 146 10x3/uL (130-400); RBC Distribution Width 17.7 % (11.5-14.5); Red Blood Cell (RBC) Count 3.21 mill/uL (4.70-6.10)
[2024-07-03 07:24] VITALS: BMI 18.3
[2024-07-03] MEDS: Rifaximin 550 MG TAB PO SCH ×2 (07:26→08:38)
[2024-07-03] MEDS: Potassium Chloride 20 MEQ TAB PO SCH (07:31)
[2024-07-03 07:33] LABS: Anion Gap 14 mmol/L (10-20); BUN (Urea Nitrogen) 18 mg/dL (8.4-25.7); Calc. Creatinine Clearance 56 mL/min (70-130); Calcium 9.4 mg/dL (7.8-10.44); Carbon Dioxide 26 mmol/L (23-31); Chloride 100 mmol/L (98-107); Estimated GFR 96; Glucose 90 mg/dL (83-110); Potassium 4.3 mmol/L (3.5-5.1); Sodium 136 mmol/L (136-145)
[2024-07-03 07:39] LABS: Troponin I 0.012 ng/mL (< 0.028)
[2024-07-03] MEDS ORDERED: Lactulose 20 GM (30 mL) UDCUP ONE (08:24)
[2024-07-03] MEDS ORDERED: Pantoprazole 40 MG VIAL ONE (08:24)
[2024-07-03] MEDS ORDERED: Furosemide 40 MG (4 mL) VIAL ONE (08:24)
[2024-07-03] MEDS ORDERED: Magnesium 2 GM/50 ML BAG (IN WATER) ONE (08:24)
[2024-07-03] MEDS: Lactulose 20 GM (30 mL) UDCUP PO SCH (08:40)
[2024-07-03] MEDS: Pantoprazole 40 MG VIAL IVP SCH (08:44)
[2024-07-03] MEDS: Magnesium 2 GM/50 ML(in water) 2 GM in Premix 1 BAG IVPB SCH (09:30)
[2024-07-03] MEDS ORDERED: FLU (Fluad Triv) TS24-25 (65UP)/MF59C/PF 45 MCG/0.5 ML Syringe IM ONE (19:00)
[2024-07-03] MEDS ORDERED: Ipratropium/Albuterol 3 ML NEB NEB PRN (20:10)
[2024-07-03] MEDS: guaiFENesin ER 600 MG TAB PO SCH (21:22)
[2024-07-04] MEDS: guaiFENesin ER 600 MG TAB PO SCH (08:31)
[2024-07-04 09:27] LABS: ALT (SGPT) 14 U/L (8-55); AST (SGOT) 25 U/L (5-34); Albumin 3.3 g/dL (3.4-4.8); Alkaline Phosphatase 93 U/L (40-110); Anion Gap 12 mmol/L (10-20); BUN (Urea Nitrogen) 13 mg/dL (8.4-25.7); Bilirubin, Total 2.9 mg/dL (0.2-1.2); Calc. Creatinine Clearance 56 mL/min (70-130); Carbon Dioxide 30 mmol/L (23-31); Chloride 103 mmol/L (98-107); Estimated GFR 96; Globulin 3.8 g/dL (2.4-3.5); Glucose 104 mg/dL (83-110); Potassium 3.2 mmol/L (3.5-5.1); Protein, Total 7.1 g/dL (5.8-8.1); Sodium 142 mmol/L (136-145)
[2024-07-04] MEDS: Potassium Chloride 20 MEQ TAB PO SCH (10:32)
[2024-07-04] MEDS: Potassium Chloride 20 MEQ in Premix 1 BAG IVPB SCH ×2 (12:14→21:23)
[2024-07-04] MEDS ORDERED: Lidocaine 1% PF 5 ML VIAL ONE (13:29)
[2024-07-04] MEDS ORDERED: Sodium Bicarbonate 2.5 MEQ/5 ML SDV ONE (13:29)
[2024-07-04 15:21] LABS: RBC Count-Automated (BF) 4416 /cu.mm; WBC/Nucleated-Auto (BF) 422 /cu.mm
[2024-07-04 15:32] LABS: Body Fluid Source Peritoneal Fluid
[2024-07-04 15:33] LABS: BF Color Yellow; Clarity Hazy (Clear); Tube # EDTA
[2024-07-04 16:53] LABS: BF Segmented Neutrophils 8 %; Cell Count Non Hematic 33 %; Lymphocytes 59 %
[2024-07-04 18:35] VITALS: BMI 18.3
[2024-07-05 04:37] LABS: #Basophils 0.05 10x3/uL (0.0-0.2); %Basophils 0.5 % (0.0-1.0); %Eosinophils 0.9 % (0.0-10.0); %Lymphocytes 5.7 % (21.0-51.0); %Monocytes 15.2 % (0.0-10.0); %Neutrophils 76.9 % (42.0-75.0); Hemoglobin 10.2 g/dL (14.0-18.0); Mean Corpuscular HGB CONC 32.9 g/dL (32.0-36.0); Mean Corpuscular Hemoglobin 31.5 pg (27.0-31.0); Mean Corpuscular Volume 95.7 fL (78.0-98.0); Mean Platelet Volume 10.2 fL (7.4-10.4); Platelet Count 148 10x3/uL (130-400); RBC Distribution Width 18.2 % (11.5-14.5); Red Blood Cell (RBC) Count 3.24 mill/uL (4.70-6.10)
[2024-07-05 08:28] LABS: Anion Gap 14 mmol/L (10-20); BUN (Urea Nitrogen) 14 mg/dL (8.4-25.7); Calc. Creatinine Clearance 56 mL/min (70-130); Calcium 10.3 mg/dL (7.8-10.44); Carbon Dioxide 26 mmol/L (23-31); Chloride 104 mmol/L (98-107); Estimated GFR 96; Glucose 88 mg/dL (83-110); Potassium 4.6 mmol/L (3.5-5.1); Sodium 139 mmol/L (136-145)
[2024-07-05 08:47] LABS: Hematocrit 35.7 % (42.0-52.0); Hemoglobin 11.8 g/dL (14.0-18.0); Mean Corpuscular HGB CONC 33.1 g/dL (32.0-36.0); Mean Corpuscular Hemoglobin 31.6 pg (27.0-31.0); Mean Corpuscular Volume 95.7 fL (78.0-98.0); Mean Platelet Volume 9.9 fL (7.4-10.4); Platelet Count 105 10x3/uL (130-400); RBC Distribution Width 18.3 % (11.5-14.5); Red Blood Cell (RBC) Count 3.73 mill/uL (4.70-6.10)
[2024-07-06] MEDS: Furosemide 40 MG TAB PO SCH (10:31)
[2024-07-07 08:41] LABS: Hematocrit 36.6 % (42.0-52.0); Hemoglobin 11.9 g/dL (14.0-18.0); INR-International Normal Ratio 2.2; Mean Corpuscular HGB CONC 32.5 g/dL (32.0-36.0); Mean Corpuscular Hemoglobin 31.6 pg (27.0-31.0); Mean Corpuscular Volume 97.3 fL (78.0-98.0); Mean Platelet Volume 9.4 fL (7.4-10.4); Platelet Count 120 10x3/uL (130-400); Prothrombin Time 24.8 sec (12.0-14.7); RBC Distribution Width 18.3 % (11.5-14.5); Red Blood Cell (RBC) Count 3.76 mill/uL (4.70-6.10)
[2024-07-07 08:42] LABS: #Basophils 0.04 10x3/uL (0.0-0.2); %Basophils 0.4 % (0.0-1.0); %Eosinophils 0.7 % (0.0-10.0); %Lymphocytes 6.8 % (21.0-51.0); %Neutrophils 75.7 % (42.0-75.0)
[2024-07-07 08:47] LABS: ALT (SGPT) 17 U/L (8-55); AST (SGOT) 32 U/L (5-34); Alkaline Phosphatase 104 U/L (40-110); Anion Gap 12 mmol/L (10-20); BUN (Urea Nitrogen) 15 mg/dL (8.4-25.7); Bilirubin, Total 3.5 mg/dL (0.2-1.2); Calc. Creatinine Clearance 55 mL/min (70-130); Calcium 10.4 mg/dL (7.8-10.44); Carbon Dioxide 27 mmol/L (23-31); Chloride 104 mmol/L (98-107); Estimated GFR 95; Globulin 5.1 g/dL (2.4-3.5); Glucose 114 mg/dL (83-110); Potassium 3.4 mmol/L (3.5-5.1); Protein, Total 8.1 g/dL (5.8-8.1); Sodium 140 mmol/L (136-145)
[2024-07-07] MEDS: Potassium Chloride 20 MEQ TAB PO SCH (10:43)
[2024-07-07] MEDS: Ondansetron ODT 4 MG TAB PO PRN (10:59)
[2024-07-07] MEDS: Metoprolol Tartrate 5 MG (5 mL) VIAL IVP SCH (13:41)
[2024-07-07] MEDS ORDERED: Lorazepam 2 MG/ML VIAL SLOW IVP PRN (15:48)
[2024-07-07] MEDS ORDERED: Glycopyrrolate 0.4 MG/ 2 ML VIAL SLOW IVP PRN (16:01)
[2024-07-07] MEDS: Morphine 2 MG/ML VIAL SLOW IVP PRN (16:18)
[2024-07-07 16:30] VITALS: BP 85/54; TEMP 98.6
[2024-07-08] MEDS ORDERED: Pantoprazole DR 40 MG TAB PO SCH (09:00)
== END 2024-07-07 17:47 | disposition hospice, inpatient (51) | DRG 432 ==
LOC: ERS 20:06 → ERHOLD 23:02 → 2NO 23:04
PROVIDERS: ADMIT Student in an Organized Health Care Education/Training Program; ATTEND Student in an Organized Health Care Education/Training Program
PROC: 30233J1 Transfusion of Nonautologous Serum Albumin into Peripheral Vein, Percutaneous Approach (ICD-10-PCS; 2024-07-02)
PROC: 3E03329 Introduction of Other Anti-infective into Peripheral Vein, Percutaneous Approach (ICD-10-PCS; 2024-07-02)
PROC: 0W9G3ZZ Drainage of Peritoneal Cavity, Percutaneous Approach (ICD-10-PCS; principal; 2024-07-04)
DX: K70.31 Alcoholic cirrhosis of liver with ascites (principal); A41.9 Sepsis, unspecified organism; J69.0 Pneumonitis due to inhalation of food and vomit; J96.01 Acute respiratory failure with hypoxia; C18.9 Malignant neoplasm of colon, unspecified; E87.20 Acidosis, unspecified; E44.0 Moderate protein-calorie malnutrition; Z68.1 Body mass index [BMI] 19.9 or less, adult; R64 Cachexia; I10 Essential (primary) hypertension; R53.1 Weakness; D64.9 Anemia, unspecified; K76.82 Hepatic encephalopathy; Z98.890 Other specified postprocedural states; Z51.5 Encounter for palliative care; R13.10 Dysphagia, unspecified; Z66 Do not resuscitate
CPT/HCPCS: 36415; 49083; 71045; 74230; 80048; 80053; 81001; 82140; 83605; 83735; 83880; 84484; 85025; 85060; 85610; 85730; 86850; 86900; 86901; 87040; 87081; 87086; 89051; 93005; 93010; 93306; 96361; 96365; 96366; 96367; J1940; J2272; J2470; J2543; J3370; J3475; J3480; P9047; Q0162

== ENCOUNTER 2024-07-07 17:52 | Inpatient (IN) | payer OTHER ==
[2024-07-07] MEDS ORDERED: Ondansetron PF 4 MG/2 ML Vial IVP PRN (18:15)
[2024-07-07] MEDS ORDERED: Haloperidol Lactate 5 MG/ML VIAL SLOW IVP PRN (18:15)
[2024-07-07] MEDS ORDERED: Acetaminophen 650 MG Suppository PR PRN (18:15)
[2024-07-07] MEDS ORDERED: Lorazepam 2 MG/ML VIAL SLOW IVP PRN (18:15)
[2024-07-07] MEDS ORDERED: Glycopyrrolate 0.4 MG/ 2 ML VIAL SLOW IVP PRN (18:18)
[2024-07-07] MEDS ORDERED: Bisacodyl 10 MG SUPP PR PRN (18:19)
[2024-07-07] MEDS: Morphine 2 MG/ML VIAL SLOW IVP PRN (20:44)
[2024-07-07] MEDS: Scopolamine 1 mg/72 hour Patch TOP PRN (20:44)
[2024-07-07 23:53] VITALS: BP 52/37; TEMP 97.5
== END 2024-07-08 02:30 | disposition expired | DRG 951 ==
LOC: 2NO 17:52
PROVIDERS: ADMIT Family Medicine; ATTEND Family Medicine
DX: Z51.5 Encounter for palliative care (principal); Z66 Do not resuscitate
CPT/HCPCS: J2272